=== PATIENT | female | born 1950 | race Caucasian/White ===

== ENCOUNTER 2017-01-11 16:58 | Emergency (ER) | payer OTHER ==
[~2017-01-11] VITALS: Ht 152.4 cm; Wt 81.6 kg
[~2017-01-11 16:58] MED LIST: ALTOPREV40 MG PO; Aspirin E.C. PO; CALCIUM CITRAT1 EA15 PO; Citracal W/Vitamin D PO; Fish Oil PO; LOW DOSE ASPIRI81 M1 PO; PRAVACHOL40 MG PO; PRINIVIL20 MG PO; SIMVASTATIN40 MG PO; TYLENOL WITH C1 EACH PO; ZESTRIL20 MG PO; Zestril,Prinivil PO
[2017-01-11 17:26] LABS: HEMATOCRIT 43.2 % (36.0-46.0); MCH 30.8 PG (29.0-34.0); MCHC 34.5 G/DL (30.0-36.0); MCV 89.3 FL (83-99); MEAN PLAT.VOLUME 10.2 uM^3 (9.5-12.4); PLATELET COUNT 201 K/uL (156-360); RBC DIS.WIDTH-SD 41.7 % (39-53); RED BLOOD COUNT 4.84 M/uL (3.80-5.20); WHITE BLOOD COUNT 4.7 K/uL (4.1-10.2)
[2017-01-11 17:37] LABS: CHLORIDE 106 mEq/L (99-109); POTASSIUM 4.1 mEq/L (3.7-5.4); SODIUM 140 mEq/L (136-147)
[2017-01-11 17:38] LABS: GLUCOSE 86 mg/dL (70-99)
[2017-01-11 17:40] LABS: ANION GAP 10 MEQ/L (2-14)
[2017-01-11 17:42] LABS: GFR ESTIMATE (CALCULATED) > 59 mL/min/
[2017-01-11 17:43] LABS: UREA NITROGEN (BUN) 9 mg/dL (9-23)
[2017-01-11 18:52] LABS: INFLUENZA A VIRAL ANTIGEN POSITIVE; INFLUENZA B VIRAL ANTIGEN NEGATIVE
[2017-01-11] MEDS ORDERED: TAMIFLU75 MG PO (19:02)
[2017-01-11] MEDS ORDERED: VENTOLIN HFA18 GM IH (19:02)
[2017-01-11 19:25] VITALS: BP 155/72
== END 2017-01-11 19:25 | disposition home or self-care (01) ==
LOC: EME 16:58
PROVIDERS: Nurse Practitioner Family
DX: J10.1 Influenza due to other identified influenza virus with other respiratory manifestations (principal); E78.5 Hyperlipidemia, unspecified; I10 Essential (primary) hypertension; Z95.1 Presence of aortocoronary bypass graft; Z85.3 Personal history of malignant neoplasm of breast; Z90.12 Acquired absence of left breast and nipple; Z79.82 Long term (current) use of aspirin
CPT/HCPCS: 71020; 80048; 85027; 87502; 87651 90; 94640; 99281; 99283